=== PATIENT | female | born 1990 | race Caucasian/White ===

== ENCOUNTER → 2024-06-05 14:44 | Outpatient (REF) | payer BC, SELFPAY | LOC: RAD 14:44 | PROVIDERS: ATTENDING PHYSICIAN Nurse Practitioner Gerontology; FAMILY PHYSICIAN Family Medicine | DX: Z36.9 Encounter for antenatal screening, unspecified (principal) | CPT/HCPCS: 76801 ==

== ENCOUNTER → 2024-06-12 11:21 | Outpatient (REF) | payer BC, SELFPAY | LOC: PNTC 11:21 | PROVIDERS: ATTENDING PHYSICIAN Obstetrics & Gynecology | DX: Z36.0 Encounter for antenatal screening for chromosomal anomalies (principal); Z36.82 Encounter for antenatal screening for nuchal translucency | CPT/HCPCS: 36415; 76801; 76813 ==

== ENCOUNTER → 2024-08-13 06:59 | Outpatient (REF) | payer BC, SELFPAY | LOC: PNTC 06:59 | PROVIDERS: ATTENDING PHYSICIAN Obstetrics & Gynecology | DX: O09.519 Supervision of elderly primigravida, unspecified trimester (principal) | CPT/HCPCS: 76805 ==

== ENCOUNTER 2024-12-19 03:35 | Inpatient (IN) | payer BC, SELFPAY ==
[2024-12-19 03:46] VITALS: BP 130/81; BMI 28.6
[2024-12-19] MEDS: LR 1000 IV ×2 (04:40→07:30)
[2024-12-19] MEDS: PENICILLIN 110 UNITS IV (04:50)
[2024-12-19 04:54] LABS: % Basophils 0.6 % (0-2); % Eosinophils 1.7 % (0-6); % Immature Granulocytes 0.6 % (0-0.5); % Lymphocytes 19.7 % (20.5-51.1); % Monocytes 5.8 % (1.7-9.3); % Neutrophils 71.6 % (42.2-75.2); Absolute Basophils 0.1 10^3/uL (0-0.2); Absolute Eosinophils 0.2 10^3/uL (0-0.7); Absolute Immature Granulocytes 0.1 10^3/uL (0-0.05); Absolute Lymphocytes 2.3 10^3/uL (1.2-3.4); Absolute Monocytes 0.7 10^3/uL (0.1-0.6); Absolute Neutrophils 8.3 10^3/uL (1.4-6.5); Hematocrit 33.8 % (37.0-47.0); Hemoglobin 11.6 g/dL (12.0-16.0); Mean Corp Hgb Conc. 34.3 g/dL (33.0-37.0); Mean Corpuscular Hgb 30.9 pg (27.0-31.0); Mean Corpuscular Volume 89.9 fL (81.0-99.0); Mean Platelet Volume 11.3 fL (7.4-10.4); Nucleated Red Blood Cells % 0 %; Platelet Count 216 10^3/uL (130-400); Red Blood Cell Count 3.76 10^6/uL (4.20-5.40); Red Cell Dist. Width 12.6 % (11.5-14.5); White Blood Cell Count 11.6 10^3/uL (4.8-10.8)
[2024-12-19] MEDS: PITOCIN 30 UNITS/NSS 500 ML IV ×2 (06:31→13:50)
[2024-12-19] MEDS: PENICILLIN 55 UNITS IV ×2 (08:48→13:02)
[2024-12-19] MEDS: MOTRIN 600 MG PO ×2 (16:37→23:29)
[2024-12-20 04:14] LABS: Hematocrit 29.3 % (37.0-47.0); Hemoglobin 9.8 g/dL (12.0-16.0)
[2024-12-20] MEDS: PRENATAL PLUS 1 TABLET PO (08:17)
[2024-12-20] MEDS: SENOKOT-S 1 TABLET PO (08:17)
[2024-12-20] MEDS: MOTRIN 600 MG PO (08:28)
[2024-12-20 10:53] LABS: Syphilis/T. pallidum Ab Reflex Negative (Negative)
== END 2024-12-20 16:30 | disposition home or self-care (01) | DRG 807 ==
LOC: LDRP 03:35
PROVIDERS: Student in an Organized Health Care Education/Training Program; ADMITTING PHYSICIAN Obstetrics & Gynecology; ATTENDING PHYSICIAN Obstetrics & Gynecology
PROC: 10907ZC Drainage of Amniotic Fluid, Therapeutic from Products of Conception, Via Natural or Artificial Opening (ICD-10-PCS; 2024-12-19)
PROC: 10E0XZZ Delivery of Products of Conception, External Approach (ICD-10-PCS; 2024-12-19)
DX: O36.8130 Decreased fetal movements, third trimester, not applicable or unspecified (principal); Z37.0 Single live birth; Z3A.39 39 weeks gestation of pregnancy; O99.824 Streptococcus B carrier state complicating childbirth
CPT/HCPCS: 36415; 85014; 85018; 85025; 86780; 86850; 86900; 86901

== ENCOUNTER 2024-12-24 14:52 | Observation (INO) | payer BC, SELFPAY ==
[2024-12-24 15:26] LABS: Hematocrit 34.6 % (37.0-47.0); Hemoglobin 11.6 g/dL (12.0-16.0); Mean Corp Hgb Conc. 33.5 g/dL (33.0-37.0); Mean Corpuscular Hgb 30.4 pg (27.0-31.0); Mean Corpuscular Volume 90.8 fL (81.0-99.0); Mean Platelet Volume 10.6 fL (7.4-10.4); Platelet Count 255 10^3/uL (130-400); Red Blood Cell Count 3.81 10^6/uL (4.20-5.40); Red Cell Dist. Width 12.7 % (11.5-14.5); White Blood Cell Count 9.8 10^3/uL (4.8-10.8)
[2024-12-24 15:27] VITALS: BP 134/75; BMI 26.5
[2024-12-24] MEDS: TYLENOL 1000 MG PO (15:35)
[2024-12-24] MEDS: MOTRIN 600 MG PO (15:36)
[2024-12-24 15:42] LABS: ALT (SGPT) 29 U/L (0-35); AST (SGOT) 28 U/L (14-36); Albumin 4.3 g/dl (3.5-5.0); Alkaline Phosphatase 102 U/L (38-126); Blood Urea Nitrogen 17 mg/dl (7-17); Calcium 9.3 mg/dl (8.4-10.2); Carbon Dioxide 21 mmol/L (22-30); Chloride 105 mmol/L (98-107); Estimated Creatinine Clearance > 125 ml/min; Glucose 88 mg/dl (70-99); Sodium 132 mmol/L (135-145); Total Bilirubin 0.8 mg/dl (0.2-1.3); Total Protein 7.4 g/dl (6.3-8.2); eGFR > 60.00
[2024-12-24 16:47] LABS: Protein/creatinine Ratio 0.3; Urine Protein 8 mg/dl
== END 2024-12-24 17:07 | disposition home or self-care (01) ==
LOC: LDRP 14:52
PROVIDERS: ADMITTING PHYSICIAN Student in an Organized Health Care Education/Training Program
DX: O99.891 Other specified diseases and conditions complicating pregnancy (principal); Z3A.39 39 weeks gestation of pregnancy; R51.9 Headache, unspecified
CPT/HCPCS: 80053; 82570; 84156; 85027; G0378

== ENCOUNTER 2025-03-13 13:05 | Emergency (ER) | payer BC, SELFPAY ==
[2025-03-13 13:08] VITALS: BP 169/87
[2025-03-13 13:14] VITALS: BP 121/78
[2025-03-13 13:27] LABS: % Basophils 0.4 % (0-2); % Eosinophils 1.2 % (0-6); % Immature Granulocytes 0.3 % (0-0.5); % Lymphocytes 12.6 % (20.5-51.1); % Neutrophils 78.5 % (42.2-75.2); Absolute Basophils 0.1 10^3/uL (0-0.2); Absolute Eosinophils 0.2 10^3/uL (0-0.7); Absolute Immature Granulocytes 0.1 10^3/uL (0-0.05); Absolute Lymphocytes 2.3 10^3/uL (1.2-3.4); Absolute Monocytes 1.3 10^3/uL (0.1-0.6); Absolute Neutrophils 14.2 10^3/uL (1.4-6.5); Hematocrit 35.1 % (37.0-47.0); Hemoglobin 11.8 g/dL (12.0-16.0); Mean Corp Hgb Conc. 33.6 g/dL (33.0-37.0); Mean Corpuscular Hgb 29.6 pg (27.0-31.0); Mean Corpuscular Volume 88.2 fL (81.0-99.0); Mean Platelet Volume 10.3 fL (7.4-10.4); Nucleated Red Blood Cells % 0 %; Platelet Count 270 10^3/uL (130-400); Red Blood Cell Count 3.98 10^6/uL (4.20-5.40); Red Cell Dist. Width 13.4 % (11.5-14.5); White Blood Cell Count 18.1 10^3/uL (4.8-10.8)
[2025-03-13 13:38] LABS: ALT (SGPT) 26 U/L (0-35); AST (SGOT) 21 U/L (14-36); Albumin 5.1 g/dl (3.5-5.0); Alkaline Phosphatase 65 U/L (38-126); Blood Urea Nitrogen 13 mg/dl (7-17); Calcium 9.5 mg/dl (8.4-10.2); Carbon Dioxide 24 mmol/L (22-30); Chloride 104 mmol/L (98-107); Glucose 92 mg/dl (70-99); Potassium 4.1 mmol/L (3.5-5.1); Sodium 139 mmol/L (135-145); Total Bilirubin 2.5 mg/dl (0.2-1.3); eGFR > 60.00
[2025-03-13 14:46] VITALS: BP 114/74
[2025-03-13] MEDS: OMNIPAQUE 50 ML PO (14:53)
[2025-03-13] MEDS: TORADOL 15 MG IV (14:55)
[2025-03-13] MEDS: NSS 1000 IV (14:56)
--- NOTE | 2025-03-13 14:59 | ED.GENMED ---
History of Present Illness
General
Chief Complaint: Abdominal Pain
Source: patient
Exam Limitations: none
Time Seen by Provider: 03/13/25 14:11
Nursing documentation reviewed up to this point in time: agreed with
History of Present Illness
History of Present Illness:
Patient is a 34 year old female with hx diverticulitis s/p partial colectomy presenting with lower abdominal pain and fever. Symptoms have been ongoing the past few days without significant worsening. She states pain is localized in left
lower/middle abdomen and worse with movement. She reports temp at home over the past 1-2 days up to 102. She denies any diarrhea, constipation, vomiting, or dysuria.
She also notes redness and pain in right breast. She is currently .
Patient seen by OBGYN today with unremarkable pelvic exam. OBGYN felt patients breast discomfort was likely due to engorgement rather than an infection, such as mastitis.
Partial colectomy was performed many years ago with colorectal surgeon at [facility]. She has yet to establish care with GI doctor up in [place] since moving. She has not had any flares since partial colectomy.
Review of Systems
Review of Systems
Allergies reviewed?: Yes
All Other Systems: ROS reviewed and negative except as documented in HPI and ROS
Phy Exam
Physical Exam
Physical Exam:
Vitals: Patient's vital signs are stable. Afebriel in ED
General: Patient is well appearing, non toxic appearing
Skin: Warm and dry, no rashes or lesions. Area of mild erythema and tenderness of right breast at 8 o'clock. No fluctuane.
Head: Normocephalic, atraumatic
Eyes: Sclera nonicteric. EOMs intact. No nystagmus.
Throat: Protecting airway
Neck: Normal ROM, no cervical spine tenderness, no meningismus
Cardiac: Regular rate and rhythm, no murmurs.
Pulm: Normal respiratory effort, no wheezes, rales, rhonchi heard on exam.
Abdomen: Abdomen soft. Mild-moderate tenderness in LLQ and suprapubic region. No rebound tenderness or guarding.
Extremities: No evidence of cyanosis or edema
Neuro: AAOx3. Grossly intact.
Psychiatric: Normal affect.
Course
Orders/Labs/Results
Orders:
Orders
03/13/25 13:16
Complete Blood Count/With Diff Urgent
Comprehensive Metabolic Panel Urgent
HCG, Serum Qualitative Screen Urgent
Comment: ADD ON
Lipase Urgent
03/13/25 14:32
0.9% Sodium Chloride 1000 ml [Nss] 1,000 ml IV BOLUS
Iohexol [Omnipaque] See Protocol PO NOW STA
Ketorolac [Toradol] 15 mg IV NOW STA
03/13/25 14:35
CT Abd/pel W Iv And Oral Contr Urgent
Comment: hx colectomy
Reason For Exam: LLQ pain
03/13/25 14:36
Add On- LAB Urgent
Tests Added?: serum hcg
03/13/25 15:43
Urinalysis Reflex To Culture Urgent
Date Specimen was Collected: 03/13/25
Time Specimen was Collected: 15:42
Urine Microscopic Reflex Cult Urgent
Urine Culture Urgent
CHRIS Source: U
Specimen Description:
Date Specimen was Collected: 03/13/25
Time Specimen was Collected: 15:42
03/13/25 19:08
Amoxicillin 875 mg/Clav 125 mg [Augmentin 875 mg/125 mg] 1 tablet PO NOW STA
03/13/25 19:34
Norovirus by PCR Urgent
CHRIS Source: Feces/Stool
Specimen Description:
Date Specimen was Collected: 03/13/25
Time Specimen was Collected: 19:03
STOOL [C difficile Antigen & Toxins] Urgent
CHRIS Source: Feces/Stool
Specimen Description:
Date Specimen was Collected: 03/13/25
Time Specimen was Collected: 19:03
Stool Culture Urgent
CHRIS Source: Feces/Stool
Specimen Description:
Date Specimen was Collected: 03/13/25
Time Specimen was Collected: 19:03
Abnormal Lab Results
03/13/25 03/13/25
13:16 15:43
WBC 18.1 H 10^3/uL
(4.8-10.8)
RBC 3.98 L 10^6/uL
(4.20-5.40)
Hgb 11.8 L g/dL
(12.0-16.0)
Hct 35.1 L %
(37.0-47.0)
Abs Immat Gran (auto) 0.1 H 10^3/uL
(0-0.05)
Absolute Neuts (auto) 14.2 H 10^3/uL
(1.4-6.5)
Absolute Monos (auto) 1.3 H 10^3/uL
(0.1-0.6)
Neutrophils % 78.5 H %
(42.2-75.2)
Lymphocytes % 12.6 L %
(20.5-51.1)
Total Bilirubin 2.5 H mg/dl
(0.2-1.3)
Albumin 5.1 H g/dl
(3.5-5.0)
Urine Ketones 3+ A
(Negative)
Urine Bacteria (Reflex) Moderate A
(Negative)
Urine Albumin (Reflex) 2+ A
(Neg - Trace)
03/13/25 13:16
03/13/25 13:16
Vital Signs
Initial and Last Documented VS:
Initial Vital Signs
Temp Pulse Resp BP Pulse Ox
98.5 F 98 18 169/87 100
03/13/25 13:08 03/13/25 13:08 03/13/25 13:08 03/13/25 13:08 03/13/25 13:08
Last Documented Vital Signs
Temp Pulse Resp BP Pulse Ox
98.5 F 98 18 119/66 100
03/13/25 13:08 03/13/25 13:08 03/13/25 15:35 03/13/25 19:31 03/13/25 13:08
MDM/Problems Addressed
Differential Diagnosis Includes:
Not limited to: diverticulitis, colitis, appendicitis, UTI, pyelonephritis, etc
MDM/Problems Addressed:
Patient is a 34-year-old female with a few days of lower abdominal pain and fever. No vomiting or dysuria. Sent by [employer] after normal pelvic exam and concern for intra-abdominal process. She does have history of diverticulitis s/p partial
colectomy in the past. Vitals and physical exam as above. Patient afebrile and nontoxic-appearing. Abdomen with mild to moderate tenderness in lower abdomen, both LLQ and suprapubic region. No rebound tenderness or guarding. Labs in triage
significant for leukocytosis of 18.1. Chemistry shows no significant abnormalities. Elevation in bilirubin noted�unclear etiology. She has no upper abdominal tenderness. Will check urinalysis and CT abdomen/pelvis for further evaluation. Will
give IV fluids and treat pain.
Update: Urine does not appear infected. CT scan shows findings of possible colitis. Given history of fever and significant abdominal pain�could potentially be diverticulitis. Patient did have an episode of diarrhea in the emergency
department�will send stool sample to rule out bacterial colitis or C. difficile. Considered admission given significant leukocytosis with history of fever although patient would prefer to go home on oral antibiotic therapy given she has
baby at home. Patient is overall well-appearing I feel this is a reasonable option. Will start patient on Augmentin for 10 days. Advise close follow-up with primary care and very strict return precautions of any worsening symptoms. Will contact
patient if stool studies are positive. Patient otherwise stable for discharge home. Case was discussed with attending physician
Chronic conditions affecting care:
Hx diverticulitis s/o colectomy
Acute Exacerbation and/or Progression of Chronic Illness:
Colitis vs acute diverticulitis flare
*Radiology
Radiology exam reviewed: radiology read reviewed
*Pulse Oximetry
Patient hypoxic: no
*EKG
Interpreted by ED Provider?: NA
*Catalytic Case Operator Interpretation
Rate: Catalytic Case Operator- N/A
*Critical Care Note
Total Time (30-74mins, 75-104mins- exclusive of procedures): Not Applicable
ED Attending Note
-
Portions of this chart may have been created with voice recognition software.� Occasional wrong word or��sound alike� substitutions may have occurred due to the inherent limitations of voice recognition software.
Discharge Plan
Departure
Patient Disposition: Home (Routine Discharge)
Date of Disposition: 03/13/25
Time of Disposition: 19:09
Patient with high blood pressure during this ER visit?: Yes
Condition: Good
Covid-19: Not Applicable
Discharge Problem:
Colitis
Instructions: Clear Liquid Diet, Diverticulitis (DC)
Prescriptions:
New
amoxicillin-pot clavulanate 875-125 mg tablet
1 tab PO BID 10 Days Qty: 20 0RF
No Action
ibuprofen 600 mg Tablet
600 mg PO Q6HPRN PRN (Reason: moderate pain/cramps) Qty: 45 0RF
Referrals:
NONE,* [Family Provider] -
Activity Restrictions/Additional Instructions:
RETURN TO THE EMERGENCY DEPARTMENT ANY FEVER, CHILLS, WORSENING ABDOMINAL PAIN, PERSISTENT DIARRHEA, SIGNS OF SEVERE DEHYDRATION, OR ANY OTHER CONCERNS
- As discussed�your CT scan showed evidence of colitis or possible diverticulitis. Your white blood cell count was elevated in the emergency department.
- A prescription for antibiotics, sent to your pharmacy. You should take this twice a day for the next 10 days. I would follow a clear liquid diet for the next 2 days and then advance to low fiber. Take Tylenol and/or Motrin as needed for pain.
- We will contact you if your stool studies come back positive.
- Follow-up with primary care in a few days to ensure that symptoms are improving/for further evaluation.
Monitor your symptoms very closely and return to the emergency department with any acute worsening/new symptoms or any other concerns
Interventions
Interventions:
*Risk Screen - Suicide Last Done: 03/13/25 13:08
*General Assessment Last Done: 03/13/25 13:08
*Neglect/Abuse Screening Last Done: 03/13/25 13:08
*ED- Fall Risk Assessment Last Done: 03/13/25 13:08
*ED COVID-19 Vaccine History Last Done: 03/13/25 13:08
*Nursing Disposition Last Done: 03/13/25 19:44
[employer] Assessment Last Done: 03/13/25 15:20
Discharge Date and Time
Discharge Date/Time: 03/13/25 19:45
Print Language: SERBIAN
[2025-03-13 15:00] VITALS: BP 123/76
[2025-03-13 15:22] LABS: HCG, Serum Qualitative Screen Negative
[2025-03-13 15:55] LABS: Urine Albumin 2+ (Neg - Trace); Urine Bilirubin Negative (Negative); Urine Character Clear (Clear); Urine Color Yellow; Urine Glucose Negative (Negative); Urine Ketone 3+ (Negative); Urine Leukocyte Negative (Negative); Urine Nitrite Negative (Negative); Urine Occult Blood Negative (Negative); Urine Specific Gravity 1.025 (<1.030); Urine Urobilinogen Negative (Neg - 1+)
[2025-03-13 16:18] LABS: Urine Mucus Many
[2025-03-13 16:19] LABS: Urine Bacteria Moderate (Negative); Urine Red Blood Cell 0-2 /HPF (0-2)
[2025-03-13 16:33] LABS: Lipase 72 U/L (23-300)
[2025-03-13] MEDS: AUGMENTIN 875 MG/125 MG 1 TABLET PO (19:30)
[2025-03-13 19:31] VITALS: BP 119/66
== END 2025-03-13 19:45 | disposition home or self-care (01) ==
LOC: EMR 13:05
PROVIDERS: Emergency Medicine; Physician Assistant; EMERGENCY PHYSICIAN Emergency Medicine
DX: K52.9 Noninfective gastroenteritis and colitis, unspecified (principal); Z90.49 Acquired absence of other specified parts of digestive tract
CPT/HCPCS: 99284; 96374; 74177; 80053; 81003; 81015; 83690; 84703; 85025; 87045; 87046; 87086; 87324; 87427; 87449; 87798; Q9967